=== PATIENT | female | born 1970 | race Caucasian/White ===

== ENCOUNTER → 2018-11-26 | Outpatient (CLI) | payer OTHER, SELFPAY ==
--- NOTE | 2018-11-26 13:45 | BI_ITS ---
MAMMOGRAPHY - UNILATERAL DIAGNOSTIC: LEFT BREAST REASON FOR EXAM: Female, 47 years old. Nodule PERTINENT HISTORY: Non-contributory. TECHNIQUE: Digital examination. Spot compression CC and MLO views CAD: CAD was performed on this study. COMPARISON: Outside study FINDINGS: Breast Composition: There are scattered areas of fibroglandular density. There is a nodule in the 6:00 position of the left breast noted on the diagnostic study. Further evaluation of this with ultrasound is recommended. BI/DIAG MAMM W/CAD, UNILAT IMPRESSION: Further ultrasonographic evaluation recommended, as described above. Recall Side: Left Breast ASSESSMENT CATEGORY: BIRADS Category 0: Incomplete. Need additional imaging evaluation. A letter regarding these results will be sent to the patient by the facility within 30 days. FOLLOW-UP RECOMMENDATION: Ultrasound recommended. (I) Approximately 10% of breast cancers are not detected by mammography. A normal mammogram should not delay biopsy of a clinically suspicious abnormality. Electronically Signed: Chilo Barajas MD at 15:05 EDT , Service support ,
--- NOTE | 2018-11-26 13:46 | US_ITS ---
STUDY: ULTRASOUND BREAST - LEFT REASON FOR EXAM: Female, 47 years old. Abnormal mammogram TECHNIQUE: Axial and longitudinal images of the LEFT breast were performed with a high resolution ultrasound transducer. COMPARISON: None. FINDINGS: LEFT Breast: Ultrasound evaluation of the left breast, in the area of concern does not clearly show the lesion noted on the mammogram. There is no well-defined hypoechoic lesion or architectural distortion. There is a subtle area noted in the 7:00 position of the left breast having 0.7 x 0.5 x 0.3 cm which may represent a dilated duct. Since there is no clear sonographic correlate with the abnormality noted on the mammogram, a short-term follow-up is recommended. US/Breast Limited Unilateral IMPRESSION: No suspicious sonographic findings noted, no correlate between the asymmetry on the mammogram and the ultrasound. Recommend 6 month follow-up left breast ultrasound and mammogram to assess stability. ASSESSMENT CATEGORY: BIRADS Category 3: Probably Benign - Short-Interval Follow-up Suggested. A letter regarding these results will be sent to the patient by the facility within 30 days. Electronically Signed: Chilo Barajas MD at 15:21 EDT , Service support ,
== END | disposition home or self-care (01) ==
LOC: OPBI 13:42
PROVIDERS: Family Provider Physician Assistant; PCP Physician Assistant; Referring Provider Physician Assistant; Visit Provider Physician Assistant
DX: R92.2 Inconclusive mammogram (principal)
CPT/HCPCS: 76642; 77065

== ENCOUNTER → 2020-08-03 11:50 | Outpatient (CLI) | payer MEDICAID, SELFPAY ==
--- NOTE | 2020-08-03 11:53 | BI_ITS ---
MAMMOGRAPHY - BILATERAL SCREENING REASON FOR EXAM: Female, 49 years old. Routine annual screening examination. PERTINENT HISTORY: Non-contributory. Bilateral breast implants. TECHNIQUE: Digital bilateral breast belkis (3D mammographic acquisition) in the CC and MLO projections. 2-D mediolateral oblique (MLO) and craniocaudad (CC) views of both breasts were obtained. CAD: Full Field Digital Mammography with Computer Added Detection was performed. COMPARISON: Comparison is made with prior abdomen examination dated 11/13/2018 and 11/26/2018. FINDINGS: Breast Composition: There are scattered areas of fibroglandular density. There are no dominant masses or suspicious calcifications. Stable 6 mm well-defined nodule in the central slightly medial aspect of the left breast. This was demonstrated to be a dilated duct on prior sonogram. Stable appearance of the bilateral breast implants. No other significant abnormalities are identified. There has been no significant change since the prior study. BI/SCREEN MAMM (CAD) W/BELKIS BILAT IMPRESSION: Stable bilateral screening mammogram. Yearly follow-up mammogram recommended. (A) ASSESSMENT CATEGORY: BIRADS Category 2: Benign. A letter regarding these results will be sent to the patient by the facility within 30 days. Approximately 10% of breast cancers are not detected by mammography. A normal mammogram should not delay biopsy of a clinically suspicious abnormality. [id number] Electronically Signed: Rohan Cuevas, at 11:15 EST , Service support ,
== END ==
PROVIDERS: PCP Physician Assistant; Referring Provider Physician Assistant; Visit Provider Physician Assistant
DX: Z12.31 Encounter for screening mammogram for malignant neoplasm of breast (principal)
CPT/HCPCS: 77063; 77067